=== PATIENT | male | born 1995 | race Caucasian/White ===

== ENCOUNTER 2017-08-29 11:54 | Emergency (ER) | payer OTHER ==
[2017-08-29 12:09] VITALS: BP 135/76
--- NOTE | 2017-08-29 12:28 | UC ---
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 he sates they are swollen and sore and painful. - History of Current Complaint Chief Complaint: UCSkin Time Seen by Provider: 08/29/17 12:13 Stated Complaint: BILATERAL HAND SKIN CONCERN Hx Obtained From: Patient Onset/Duration: Gradual Onset, Lasting Days Skin Exposure Onset/Duration: Days Ago Timing: Constant Onset Severity: Moderate Current Severity: Moderate Location: Hand (Right), Hand (Left) Character: Exposure to Cold Continuous, Swelling, Pruritus, Pain Aggravating Factor(s): Nothing, Wind, Wet Conditions, Touch Alleviating Factor(s): Nothing Associated Signs & Symptoms: Positive: Negative - Allergy/Home Medications Allergies/Adverse Reactions: Allergies Allergy/AdvReac Type Severity Reaction Status Date / Time Amoxicillin Allergy Unknown Verified 08/29/17 12:03 Reaction Details Iodine Allergy See Comment Verified 08/29/17 12:03 Penicillins [PCN] Allergy Unknown Verified 08/29/17 12:03 Reaction Details Home Medications: Home Medications Ibuprofen TAB* [Advil TAB*] 800 mg PO Q8H PRN 08/29/17 [History Confirmed ] Phenylephrine W/ Acetaminophen [Tylenol Sinus Congestion 5-325 mg] 2 tab PO ONCE 08/29/17 [History Confirmed 08/29/17] Review of Systems Constitutional: Negative Skin: Rash, Other - chapped, cracking ENT: Negative Respiratory: Negative Cardiovascular: Negative Gastrointestinal: Negative Genitourinary: Negative Motor: Negative Neurovascular: Negative Musculoskeletal: Negative Neurological: Negative Psychological: Negative Is Patient Immunocompromised?: No All Other Systems Reviewed And Are Negative: Yes PMH/Surg Hx/FS Hx/Imm Hx Previously Healthy: Yes - Surgical History Surgical History: None - Family History Known Family History: Negative: Cardiac Disease, Hypertension, Diabetes - Social History Alcohol Use: Rare Substance Use Type: None Smoking Status (MU): Current Some Day Smoker Type: Cigarettes, Smokeless Tobacco - Immunization History Most Recent Influenza Vaccination: Not the Season Most Recent Tetanus Shot: 03/15/16 Physical Exam Triage Information Reviewed: Yes Appearance: Well-Appearing, Well-Nourished, Pain Distress Vital Signs: Initial Vital Signs Temp 98.1 F 08/29/17 12:00 Pulse 70 01/07/18 12:00 Resp 16 08/29/17 12:00 BP 135/76 08/29/17 12:00 Pulse Ox 100 08/29/17 12:00 Vital Signs Reviewed: Yes Eye Exam: Normal ENT Exam: Normal Dental Exam: Normal Neck exam: Normal Respiratory Exam: Normal Cardiovascular Exam: Normal Abdominal Exam: Normal Bowel Sounds: Positive: Present Musculoskeletal: Positive: Edema @ - bilateral hands Neurological Exam: Normal Psychological Exam: Normal Skin: Positive: breakdown, Other - erythema on bilateral hands, grease and dirt around all nails and discolored callus Course/Dx - Course Course Of Treatment: hx obtained, exam performed, meds reviewed, education given on treatment and meds. - Differential Diagnoses - Skin Complaint Differential Diagnoses: Cellulitis, Contact Dermatitis, Eczema - Diagnoses Provider Diagnoses: cellulitis of bilteral hands. skin breakdown bilateral hands. edema of bilateral hands Discharge - Discharge Plan Condition: Stable Disposition: HOME Prescriptions: Cephalexin CAP* [Keflex CAP*] 500 mg PO BID #[id number] cap Patient Education Materials: Dermatitis (ED) Referrals: Raul Tyler [Primary Care Provider] - Additional Instructions: 1. Wash hands with oil ( any kind will work, olive oil, coconut oil) 2. soak hands in warm water with the oil in it. 3. dry hands completely 4. apply a eucerin or aquaphor type lotion to both hands, you can hospice clinical supervisor some cheap cotton glovew to wear over the lotion to help penetrate it into the skin 5. for the next two days use the mariam wraps and elevate the hands. 6. Take the medication as needed for underlying infection 7. after it has healed, it is important to keep the hands clean of obvious, grease and oil and keep the hands moisturized.
== END 2017-08-29 12:44 | disposition home or self-care (01) ==
LOC: UCCORT 11:54
DX: L03.114 Cellulitis of left upper limb (principal); L03.113 Cellulitis of right upper limb; L98.8 Other specified disorders of the skin and subcutaneous tissue; R60.9 Edema, unspecified; Z72.0 Tobacco use
CPT/HCPCS: 99212; G0463